=== PATIENT | female | born 1935 | race Caucasian/White ===

== ENCOUNTER 2022-10-25 12:07 | Inpatient (IN) | payer MEDICARE, BC ==
[2022-10-25] MEDS ORDERED: Aspirin Chewable 81 MG TAB ONE (13:01)
[2022-10-25] MEDS ORDERED: Furosemide 40 MG/4 ML VIAL ONE (13:01)
[2022-10-25 13:09] LABS: ALT (SGPT) 10 U/L (8-55); AST (SGOT) 16 U/L (5-34); Albumin 3.3 g/dL (3.4-4.8); Alkaline Phosphatase 93 U/L (40-110); Anion Gap 13 mmol/L (10-20); BUN (Urea Nitrogen) 16 mg/dL (9.8-20.1); Bilirubin, Total 0.8 mg/dL (0.2-1.2); Calc. Creatinine Clearance 0 mL/min (70-130); Carbon Dioxide 30 mmol/L (23-31); Chloride 99 mmol/L (98-107); Estimated GFR 71; Globulin 2.8 g/dL (2.4-3.5); Glucose 101 mg/dL (83-110); Magnesium 1.6 mg/dL (1.6-2.6); Potassium 3.2 mmol/L (3.5-5.1); Protein, Total 6.1 g/dL (5.8-8.1); Sodium 139 mmol/L (136-145)
[2022-10-25 13:17] LABS: #Lymphocytes 0.8 thou/uL (1.20-3.40); #Monocytes 0.6 thou/uL (0.11-0.59); #Neutrophils 4.4 thou/uL (1.40-6.50); %Basophils 0.2 % (0.0-1.0); %Eosinophils 0.6 % (0.0-10.0); %Lymphocytes 13.9 % (21.0-51.0); %Monocytes 9.9 % (0.0-10.0); %Neutrophils 75.4 % (42.0-75.0); Hemoglobin 11.6 g/dL (12.0-16.0); Mean Corpuscular HGB CONC 30.6 g/dL (32.0-36.0); Mean Corpuscular Hemoglobin 28.7 pg (27.0-31.0); Mean Corpuscular Volume 93.8 fl (78.0-98.0); Mean Platelet Volume 8.5 fL (7.4-10.4); Platelet Count 195 10x3/uL (130-400); RBC Distribution Width 14.1 % (11.5-14.5); Red Blood Cell (RBC) Count 4.04 mill/uL (4.20-5.40); White Blood Cell (WBC) Count 5.9 10x3/uL (4.8-10.8)
[2022-10-25] MEDS ORDERED: Senokot S 8.6-50 MG TAB PO PRN (16:05)
[2022-10-25] MEDS ORDERED: Bisacodyl 5 MG TAB PO PRN (16:05)
[2022-10-25] MEDS ORDERED: Bisacodyl 10 MG SUPP PR PRN (16:05)
[2022-10-25] MEDS ORDERED: Potassium Chloride 20 MEQ TAB PO SCH (16:45)
[2022-10-25] MEDS ORDERED: Electrolyte Replacement Protocol FS PRN (16:45)
[2022-10-25] MEDS: Montelukast Sodium 10 mg Tablet PO SCH (21:44)
[2022-10-25] MEDS: Famotidine 20 MG TAB PO SCH (21:45)
[2022-10-25] MEDS: Atorvastatin Calcium 20 MG TAB PO SCH (21:45)
[2022-10-25] MEDS: Acetaminophen 500 MG TAB PO SCH (21:45)
[2022-10-25] MEDS: Apixaban 2.5 MG TAB PO SCH (21:45)
[2022-10-26 04:31] LABS: #Eosinphils 0.2 thou/uL (0.0-0.7); #Lymphocytes 1.1 thou/uL (1.20-3.40); #Monocytes 0.7 thou/uL (0.11-0.59); #Neutrophils 3.1 thou/uL (1.40-6.50); %Basophils 0.5 % (0.0-1.0); %Lymphocytes 20.9 % (21.0-51.0); %Monocytes 14.5 % (0.0-10.0); Hemoglobin 10.9 g/dL (12.0-16.0); Mean Corpuscular Hemoglobin 30.3 pg (27.0-31.0); Mean Corpuscular Volume 94.5 fl (78.0-98.0); Mean Platelet Volume 8.3 fL (7.4-10.4); Platelet Count 161 10x3/uL (130-400); White Blood Cell (WBC) Count 5.1 10x3/uL (4.8-10.8)
[2022-10-26 04:44] LABS: Anion Gap 11 mmol/L (10-20); BUN (Urea Nitrogen) 18 mg/dL (9.8-20.1); Calc. Creatinine Clearance 40 mL/min (70-130); Calcium 8.5 mg/dL (7.8-10.44); Carbon Dioxide 32 mmol/L (23-31); Chloride 100 mmol/L (98-107); Estimated GFR 72; Glucose 94 mg/dL (83-110); Potassium 3.7 mmol/L (3.5-5.1); Sodium 139 mmol/L (136-145)
[2022-10-26] MEDS ORDERED: Magnesium 2 GM/50 ML(in water) 2 GM in Premix Bag 1 BAG IVPB SCH (05:45)
[2022-10-26] MEDS: Furosemide 40 MG TAB PO SCH (07:01)
[2022-10-26] MEDS: Acetaminophen 500 MG TAB PO SCH ×3 (09:13→21:48)
[2022-10-26] MEDS: Aspirin 81 mg Enteric Coated Tablet PO SCH (09:13)
[2022-10-26] MEDS: Digoxin 0.125 MG TAB PO SCH (09:37)
[2022-10-26] MEDS: Famotidine 20 MG TAB PO SCH ×2 (09:37→21:48)
[2022-10-26] MEDS: valACYclovir 500 MG TAB PO SCH (09:38)
[2022-10-26] MEDS: Clopidogrel Bisulfate 75 MG TAB PO SCH (09:38)
[2022-10-26] MEDS: Apixaban 2.5 MG TAB PO SCH ×2 (09:39→21:48)
[2022-10-26] MEDS ORDERED: traMADol HCl 50 MG TAB PO PRN (13:15)
[2022-10-26 13:34] VITALS: BMI 17.2
[2022-10-26] MEDS ORDERED: Lidocaine 5% Patch TD SCH (14:00)
[2022-10-26] MEDS: Atorvastatin Calcium 20 MG TAB PO SCH (21:48)
[2022-10-26] MEDS: Montelukast Sodium 10 mg Tablet PO SCH (21:48)
[2022-10-27] MEDS: Transdermal Patch Removal TOP SCH (03:29)
[2022-10-27 05:34] LABS: #Eosinphils 0.3 thou/uL (0.0-0.7); #Lymphocytes 1.4 thou/uL (1.20-3.40); #Monocytes 0.7 thou/uL (0.11-0.59); #Neutrophils 4.5 thou/uL (1.40-6.50); %Basophils 0.1 % (0.0-1.0); %Eosinophils 4.7 % (0.0-10.0); %Lymphocytes 19.9 % (21.0-51.0); %Monocytes 9.6 % (0.0-10.0); %Neutrophils 65.7 % (42.0-75.0); Hemoglobin 11.6 g/dL (12.0-16.0); Mean Corpuscular HGB CONC 31.6 g/dL (32.0-36.0); Mean Corpuscular Hemoglobin 30.3 pg (27.0-31.0); Mean Corpuscular Volume 96.1 fl (78.0-98.0); Mean Platelet Volume 8.5 fL (7.4-10.4); Platelet Count 171 10x3/uL (130-400); RBC Distribution Width 14.3 % (11.5-14.5); Red Blood Cell (RBC) Count 3.81 mill/uL (4.20-5.40); White Blood Cell (WBC) Count 6.8 10x3/uL (4.8-10.8)
[2022-10-27 06:01] LABS: Anion Gap 13 mmol/L (10-20); BUN (Urea Nitrogen) 26 mg/dL (9.8-20.1); Calc. Creatinine Clearance 38 mL/min (70-130); Calcium 8.3 mg/dL (7.8-10.44); Carbon Dioxide 29 mmol/L (23-31); Chloride 99 mmol/L (98-107); Estimated GFR 71; Glucose 114 mg/dL (83-110); Potassium 4.2 mmol/L (3.5-5.1); Sodium 137 mmol/L (136-145); Uric Acid 6.6 mg/dL (2.6-6.0)
[2022-10-27] MEDS: Furosemide 40 MG TAB PO SCH (06:45)
[2022-10-27] MEDS: Famotidine 20 MG TAB PO SCH ×2 (09:18→21:23)
[2022-10-27] MEDS: Aspirin 81 mg Enteric Coated Tablet PO SCH (09:18)
[2022-10-27] MEDS: Digoxin 0.125 MG TAB PO SCH (09:18)
[2022-10-27] MEDS: Clopidogrel Bisulfate 75 MG TAB PO SCH (09:18)
[2022-10-27] MEDS: valACYclovir 500 MG TAB PO SCH (09:18)
[2022-10-27] MEDS: Apixaban 2.5 MG TAB PO SCH ×2 (09:18→21:23)
[2022-10-27] MEDS: Acetaminophen 500 MG TAB PO SCH ×3 (09:19→21:24)
[2022-10-27] MEDS ORDERED: Lidocaine 5% Patch TD SCH (14:00)
[2022-10-27] MEDS: Lidocaine 4% Patch TD SCH (14:40)
[2022-10-27] MEDS: Montelukast Sodium 10 mg Tablet PO SCH (21:23)
[2022-10-27] MEDS: Atorvastatin Calcium 20 MG TAB PO SCH (21:23)
[2022-10-28] MEDS: Transdermal Patch Removal TOP SCH (02:30)
[2022-10-28 04:47] LABS: #Eosinphils 0.3 thou/uL (0.0-0.7); #Monocytes 0.6 thou/uL (0.11-0.59); #Neutrophils 6.4 thou/uL (1.40-6.50); %Basophils 0.2 % (0.0-1.0); %Lymphocytes 12.5 % (21.0-51.0); %Monocytes 7.1 % (0.0-10.0); %Neutrophils 77.2 % (42.0-75.0); Hemoglobin 12.6 g/dL (12.0-16.0); Mean Corpuscular HGB CONC 32.3 g/dL (32.0-36.0); Mean Corpuscular Hemoglobin 30.6 pg (27.0-31.0); Mean Corpuscular Volume 94.9 fl (78.0-98.0); Mean Platelet Volume 8.5 fL (7.4-10.4); Platelet Count 202 10x3/uL (130-400); RBC Distribution Width 14.3 % (11.5-14.5); Red Blood Cell (RBC) Count 4.12 mill/uL (4.20-5.40); White Blood Cell (WBC) Count 8.3 10x3/uL (4.8-10.8)
[2022-10-28 05:07] LABS: Anion Gap 15 mmol/L (10-20); BUN (Urea Nitrogen) 31 mg/dL (9.8-20.1); Calc. Creatinine Clearance 41 mL/min (70-130); Carbon Dioxide 26 mmol/L (23-31); Chloride 99 mmol/L (98-107); Estimated GFR 75; Glucose 81 mg/dL (83-110); Potassium 4.7 mmol/L (3.5-5.1); Sodium 135 mmol/L (136-145)
[2022-10-28] MEDS: Furosemide 40 MG TAB PO SCH (07:43)
[2022-10-28] MEDS: Acetaminophen 500 MG TAB PO SCH ×3 (09:59→20:46)
[2022-10-28] MEDS: Apixaban 2.5 MG TAB PO SCH ×2 (09:59→20:46)
[2022-10-28] MEDS: Digoxin 0.125 MG TAB PO SCH (09:59)
[2022-10-28] MEDS: Clopidogrel Bisulfate 75 MG TAB PO SCH (09:59)
[2022-10-28] MEDS: Aspirin 81 mg Enteric Coated Tablet PO SCH (09:59)
[2022-10-28] MEDS: valACYclovir 500 MG TAB PO SCH (09:59)
[2022-10-28] MEDS: Lidocaine 4% Patch TD SCH (14:18)
[2022-10-28] MEDS: Montelukast Sodium 10 mg Tablet PO SCH (20:46)
[2022-10-28] MEDS: Famotidine 20 MG TAB PO SCH (20:46)
[2022-10-28] MEDS: Atorvastatin Calcium 20 MG TAB PO SCH (20:46)
[2022-10-29] MEDS: Transdermal Patch Removal TOP SCH (01:25)
[2022-10-29 04:30] LABS: #Eosinphils 0.2 thou/uL (0.0-0.7); #Lymphocytes 1.6 thou/uL (1.20-3.40); #Monocytes 0.7 thou/uL (0.11-0.59); #Neutrophils 3.4 thou/uL (1.40-6.50); %Basophils 0.6 % (0.0-1.0); %Eosinophils 4.1 % (0.0-10.0); %Lymphocytes 26.4 % (21.0-51.0); %Monocytes 11.7 % (0.0-10.0); %Neutrophils 57.1 % (42.0-75.0); Hemoglobin 11.5 g/dL (12.0-16.0); Mean Corpuscular HGB CONC 32.2 g/dL (32.0-36.0); Mean Corpuscular Hemoglobin 30.5 pg (27.0-31.0); Mean Corpuscular Volume 94.7 fl (78.0-98.0); Mean Platelet Volume 7.9 fL (7.4-10.4); Platelet Count 192 10x3/uL (130-400); Red Blood Cell (RBC) Count 3.77 mill/uL (4.20-5.40); White Blood Cell (WBC) Count 5.9 10x3/uL (4.8-10.8)
[2022-10-29 04:50] LABS: Anion Gap 13 mmol/L (10-20); BUN (Urea Nitrogen) 29 mg/dL (9.8-20.1); Calc. Creatinine Clearance 40 mL/min (70-130); Calcium 8.6 mg/dL (7.8-10.44); Carbon Dioxide 27 mmol/L (23-31); Chloride 101 mmol/L (98-107); Estimated GFR 74; Glucose 94 mg/dL (83-110); Potassium 3.8 mmol/L (3.5-5.1); Sodium 137 mmol/L (136-145)
[2022-10-29] MEDS ORDERED: Magnesium 2 GM/50 ML(in water) 2 GM in Premix Bag 1 BAG IVPB SCH (08:00)
[2022-10-29] MEDS ORDERED: Potassium Chloride 20 MEQ TAB PO SCH (08:30)
[2022-10-29] MEDS: Digoxin 0.125 MG TAB PO SCH (08:48)
[2022-10-29] MEDS: Furosemide 40 MG TAB PO SCH (08:49)
[2022-10-29] MEDS: Apixaban 2.5 MG TAB PO SCH ×2 (08:49→21:07)
[2022-10-29] MEDS: Clopidogrel Bisulfate 75 MG TAB PO SCH (08:50)
[2022-10-29] MEDS: valACYclovir 500 MG TAB PO SCH (08:50)
[2022-10-29] MEDS: Acetaminophen 500 MG TAB PO SCH ×3 (08:51→21:07)
[2022-10-29] MEDS: Aspirin 81 mg Enteric Coated Tablet PO SCH (08:59)
[2022-10-29] MEDS: Sodium Chloride 0.9% 1,000 ML IV SCH (10:50)
[2022-10-29] MEDS: Lidocaine 4% Patch TD SCH (14:42)
[2022-10-29 16:59] LABS: Digoxin 0.74 ng/mL (0.8-2.0)
[2022-10-29] MEDS: Atorvastatin Calcium 20 MG TAB PO SCH (21:07)
[2022-10-29] MEDS: Famotidine 20 MG TAB PO SCH (21:07)
[2022-10-29] MEDS: Montelukast Sodium 10 mg Tablet PO SCH (21:08)
[2022-10-30] MEDS: Sodium Chloride 0.9% 1,000 ML IV SCH ×2 (04:36→13:36)
[2022-10-30 05:00] LABS: #Eosinphils 0.3 thou/uL (0.0-0.7); #Lymphocytes 1.3 thou/uL (1.20-3.40); #Monocytes 0.6 thou/uL (0.11-0.59); #Neutrophils 3.5 thou/uL (1.40-6.50); %Basophils 0.4 % (0.0-1.0); %Eosinophils 4.7 % (0.0-10.0); %Lymphocytes 22.3 % (21.0-51.0); %Monocytes 10.7 % (0.0-10.0); %Neutrophils 61.9 % (42.0-75.0); Hemoglobin 11.5 g/dL (12.0-16.0); Mean Corpuscular HGB CONC 31.7 g/dL (32.0-36.0); Mean Corpuscular Hemoglobin 30.2 pg (27.0-31.0); Platelet Count 197 10x3/uL (130-400); White Blood Cell (WBC) Count 5.7 10x3/uL (4.8-10.8)
[2022-10-30 05:33] LABS: Anion Gap 10 mmol/L (10-20); BUN (Urea Nitrogen) 25 mg/dL (9.8-20.1); Calc. Creatinine Clearance 40 mL/min (70-130); Calcium 8.2 mg/dL (7.8-10.44); Carbon Dioxide 29 mmol/L (23-31); Chloride 105 mmol/L (98-107); Estimated GFR 73; Glucose 89 mg/dL (83-110); Magnesium 2.2 mg/dL (1.6-2.6); Potassium 4.4 mmol/L (3.5-5.1); Sodium 140 mmol/L (136-145)
[2022-10-30] MEDS: Transdermal Patch Removal TOP SCH (06:07)
[2022-10-30] MEDS: Furosemide 40 MG TAB PO SCH (09:08)
[2022-10-30] MEDS: Acetaminophen 500 MG TAB PO SCH ×3 (09:08→20:45)
[2022-10-30] MEDS: valACYclovir 500 MG TAB PO SCH (09:08)
[2022-10-30] MEDS: Apixaban 2.5 MG TAB PO SCH ×2 (09:08→20:45)
[2022-10-30] MEDS: Lidocaine 4% Patch TD SCH (13:40)
[2022-10-30] MEDS: Montelukast Sodium 10 mg Tablet PO SCH (20:44)
[2022-10-30] MEDS: Famotidine 20 MG TAB PO SCH (20:44)
[2022-10-30] MEDS: Atorvastatin Calcium 20 MG TAB PO SCH (20:45)
[2022-10-31] MEDS: Transdermal Patch Removal TOP SCH (02:29)
[2022-10-31] MEDS: Sodium Chloride 0.9% 1,000 ML IV SCH (02:29)
[2022-10-31 04:50] LABS: #Eosinphils 0.3 thou/uL (0.0-0.7); #Lymphocytes 1.4 thou/uL (1.20-3.40); #Monocytes 0.6 thou/uL (0.11-0.59); #Neutrophils 4.3 thou/uL (1.40-6.50); %Basophils 0.4 % (0.0-1.0); %Eosinophils 4.1 % (0.0-10.0); %Lymphocytes 20.9 % (21.0-51.0); %Monocytes 8.5 % (0.0-10.0); Hemoglobin 11.2 g/dL (12.0-16.0); Mean Corpuscular HGB CONC 32.4 g/dL (32.0-36.0); Mean Corpuscular Hemoglobin 30.5 pg (27.0-31.0); Mean Platelet Volume 7.9 fL (7.4-10.4); Platelet Count 203 10x3/uL (130-400); RBC Distribution Width 14.4 % (11.5-14.5); Red Blood Cell (RBC) Count 3.66 mill/uL (4.20-5.40); White Blood Cell (WBC) Count 6.6 10x3/uL (4.8-10.8)
[2022-10-31 05:18] LABS: Anion Gap 11 mmol/L (10-20); BUN (Urea Nitrogen) 25 mg/dL (9.8-20.1); Calc. Creatinine Clearance 40 mL/min (70-130); Calcium 8.1 mg/dL (7.8-10.44); Carbon Dioxide 24 mmol/L (23-31); Chloride 107 mmol/L (98-107); Estimated GFR 72; Glucose 88 mg/dL (83-110); Potassium 4.1 mmol/L (3.5-5.1); Sodium 138 mmol/L (136-145)
[2022-10-31] MEDS: valACYclovir 500 MG TAB PO SCH (09:10)
[2022-10-31] MEDS: Acetaminophen 500 MG TAB PO SCH ×2 (09:11→15:46)
[2022-10-31] MEDS: Apixaban 2.5 MG TAB PO SCH (09:13)
[2022-10-31] MEDS: Furosemide 40 MG TAB PO SCH (09:14)
[2022-10-31] MEDS: Lidocaine 4% Patch TD SCH (15:46)
[2022-10-31 16:00] VITALS: BP 151/83; TEMP 98.3
== END 2022-10-31 19:21 | DRG 554 ==
LOC: ERS 12:07 → 2NO 15:24 → OBSVTOIN 10-27 11:57
PROVIDERS: ADMIT Family Medicine; ATTEND Family Medicine
DX: M25.062 Hemarthrosis, left knee (principal); I50.42 Chronic combined systolic (congestive) and diastolic (congestive) heart failure; D68.32 Hemorrhagic disorder due to extrinsic circulating anticoagulants; Z20.822 Contact with and (suspected) exposure to COVID-19; I48.0 Paroxysmal atrial fibrillation; I25.10 Atherosclerotic heart disease of native coronary artery without angina pectoris; E87.6 Hypokalemia; I11.0 Hypertensive heart disease with heart failure; Z96.652 Presence of left artificial knee joint; T45.7X5A Adverse effect of anticoagulant antagonists, vitamin K and other coagulants, initial encounter; E78.2 Mixed hyperlipidemia; M25.462 Effusion, left knee; R00.1 Bradycardia, unspecified; Z85.3 Personal history of malignant neoplasm of breast; Z79.82 Long term (current) use of aspirin; Z79.01 Long term (current) use of anticoagulants; Z79.02 Long term (current) use of antithrombotics/antiplatelets; Z90.11 Acquired absence of right breast and nipple; Z90.49 Acquired absence of other specified parts of digestive tract; Z90.710 Acquired absence of both cervix and uterus; Z98.890 Other specified postprocedural states; Z82.49 Family history of ischemic heart disease and other diseases of the circulatory system
CPT/HCPCS: 36415; 71045; 80048; 80053; 80162; 83735; 83880; 84443; 84484; 84550; 85025; 85379; 85652; 86140; 86141; 93005; 93010; 96374; 96375; G0378; J1940; J3475; J7050; U0003; U0005